=== PATIENT | female | born 1965 | race Caucasian/White ===

== ENCOUNTER 2016-07-01 14:52 | Observation (INO) | payer OTHER ==
[~2016-07-01] VITALS: Ht 165.1 cm; Wt 83.1 kg
[~2016-07-01 14:52] MED LIST: CORTISONE IM; LEVO-242 PO; NEXI20CA PO; PERC5TAB12 PO; SYNT25TA PO; TRAZ100T4 PO; VENL75TA PO
[2016-07-02] MEDS ORDERED: METOPROLOL TARTRATE 25 MG TAB PO PRN (06:45)
[2016-07-02] MEDS ORDERED: SODIUM CHLORID 0.9% 500 ML IV SCH (06:45)
[2016-07-02] MEDS ORDERED: ceFAZolin 2 GM PREMIX 50 ML IV SCH (06:45)
[2016-07-02] MEDS ORDERED: LACTATED RINGER'S 1000 ML IV SCH (06:45)
[2016-07-02] MEDS ORDERED: INSULIN HUMAN REGULAR 1,000 UNITS/10 ML VIAL SQ PRN (06:45)
[2016-07-02 06:52] VITALS: BP 138/91; PULSE 89; RESP 18; TEMP 98.5; O2SAT 99
--- NOTE | 2016-07-02 06:59 | RADRPT ---
EXAM DATE/TIME: 07/02/2016 06:36 [facility] COMPARISON: No previous studies available for comparison. INDICATIONS : Shortness of breath, pre-op Lap hernia repair. MEDICAL HISTORY : None. SURGICAL HISTORY : None. ENCOUNTER: Initial ACUITY: 1 day PAIN SCORE: 0/10 LOCATION: Bilateral chest FINDINGS: A single view of the chest demonstrates the lungs to be symmetrically aerated without evidence of mas s, infiltrate or effusion. The cardiomediastinal contours are unremarkable. Osseous structures are intact. CONCLUSION: No acute disease. Mendez Suarez MD on July 02, 2016 at 6:57 Board Certified Radiologist. This report was verified electronically.
[2016-07-02] MEDS ORDERED: BUPIVACAINE/EPINEPHRINE 0.25% PF 30 ML VIAL ONE ×2 (07:01→09:08)
[2016-07-02 07:24] LABS: AUTOMATED NEUTROPHIL # 7.4 TH/MM3 (1.8-7.7); BASOPHIL # 0.1 TH/MM3 (0-0.2); BASOPHIL % 0.8 % (0.0-2.0); EOSINOPHIL # 0.2 TH/MM3 (0-0.4); EOSINOPHIL % 1.7 % (0.0-4.0); HEMATOCRIT 35.7 % (35.0-46.0); HEMO FLAGS DIFF FINAL; LYMPH % 17.9 % (9.0-44.0); LYMPHOCYTE # 1.9 TH/MM3 (1.0-4.8); MEAN CELL VOLUME 89.8 FL (80.0-100.0); MEAN CORPUSCULAR HGB CONC 33.4 % (32.0-36.0); NEUT % 71.6 % (16.0-70.0); PLATELET COUNT 397 TH/MM3 (150-450); RED BLOOD COUNT 3.97 MIL/MM3 (4.00-5.30); RED CELL DISTRIBUTION WIDTH 13.5 % (11.6-17.2); WHITE BLOOD COUNT 10.4 TH/MM3 (4.0-11.0)
[2016-07-02] MEDS ORDERED: ACETAMINOPHEN 1000 MG/100 ML VIAL IV ONE ×2 (07:37→07:40)
[2016-07-02] MEDS ORDERED: FAMOTIDINE 20 MG/2 ML VIAL ONE (07:41)
[2016-07-02] MEDS ORDERED: DEXAMETHASONE SOD PHOS 4 MG/ML VIAL ONE (07:50)
[2016-07-02] MEDS ORDERED: MIDAZOLAM HCL 2 MG/2 ML VIAL ONE (07:50)
[2016-07-02] MEDS ORDERED: fentaNYL CITRATE 250 MCG/5 ML AMP ONE (09:40)
[2016-07-02] MEDS ORDERED: *morphine SULFATE 8 MG/ML PERIprocedure ONLY ONE (10:04)
[2016-07-02] MEDS ORDERED: SODIUM CHLOR 0.9% 1000 ML INJ 1,000 ML IV SCH (10:07)
[2016-07-02] MEDS ORDERED: Post-op Orders (for Pharmacy) MISC XX ONE (10:15)
[2016-07-02] MEDS ORDERED: HYDROmorphone HCL PF 1 MG/ML VIAL IV PRN (10:15)
[2016-07-02] MEDS ORDERED: ONDANSETRON HCL 4 MG/2 ML VIAL IV PRN (10:15)
[2016-07-02] MEDS ORDERED: NALOXONE HCL 0.4 MG/ML AMP IV PRN (10:15)
[2016-07-02] MEDS ORDERED: diphenhydrAMINE HCL 50 MG/ML VIAL IV PRN (10:15)
[2016-07-02] MEDS ORDERED: MORPHINE SULFATE 4 MG/ML INJ IV PUSH PRN (10:15)
[2016-07-02] MEDS ORDERED: SODIUM CHLORIDE 0.9% FLUSH 5 ML FLUSH IVF PRN (10:15)
[2016-07-02] MEDS ORDERED: KETOROLAC TROMETHAMINE 30 MG/ML (IVP) VIAL IVP PRN (10:15)
[2016-07-02] MEDS ORDERED: SODIUM CHLORIDE 0.9% FLUSH 5 ML FLUSH IVF SCH (10:15)
[2016-07-02] MEDS ORDERED: ACETAMINOPHEN 325MG/HYDROcodone 7.5MG/15ML UDC PO PRN (10:15)
[2016-07-02] MEDS ORDERED: DO NOT ADM ANY ANTICOAGULANT DRUGS XX PRN (10:30)
[2016-07-02] MEDS ORDERED: PHENYLEPH/NS 1000 MCG/10 ML SYR IV ONE (12:00)
[2016-07-02] MEDS ORDERED: KETOROLAC TROMETHAMINE 60 MG/2 ML (IM) VIAL IM ONE (12:00)
[2016-07-02] MEDS ORDERED: PROPOFOL 200 MG/20 ML AMP IV ONE (12:00)
[2016-07-02] MEDS ORDERED: LACTATED RINGER'S 1000 ML INJ 1,000 ML IV ONE (12:00)
[2016-07-02] MEDS ORDERED: NEOSTIGMINE 3 MG/3 ML SYR IV ONE (12:00)
[2016-07-02] MEDS ORDERED: ONDANSETRON HCL 4 MG/2 ML VIAL IV PUSH ONE (12:00)
[2016-07-02 12:31] VITALS: BP 121/81; PULSE 90; RESP 18; TEMP 98.4; O2SAT 99
--- NOTE | 2016-07-07 17:39 | MP ---
cc: PARDEEP GUTIÉRREZ M.D. DATE OF SURGERY: 07/02/2016 PREOPERATIVE DIAGNOSIS Severe reflux with small hiatal hernia. POSTOPERATIVE DIAGNOSIS Severe reflux with small hiatal hernia. PROCEDURE PERFORMED Laparoscopic Geoff fundoplication with primary repair of hiatal hernia. SURGEON Pardeep Gutiérrez MD [employer]ESSING SUPERVISOR Michel Villaseñor MD ANESTHESIA General endotracheal. COMPLICATIONS None. INDICATION FOR PROCEDURE Ms. Morales is a very pleasant 50-year-old female who has had a longstanding severe reflux disease. She was seen by Dr. Whitt. She underwent Santamaria Chip which showed severe reflux. The patient was also having a.m. regurgitation. Upper GI confirmed a small hiatal hernia with significant reflux. She was referred for surgical evaluation. Risks and benefits of a Geoff fundoplication with reduction of a hiatal hernia was discussed with her and she was agreeable. DETAILS OF PROCEDURE The patient was identified, brought to the operating room and placed supine on the operating table. After adequate general endotracheal anesthesia was achieved, the abdomen was prepped and draped in standard surgical fashion. Supraumbilical space was anesthetized with 0.25% Marcaine. Supraumbilical incision was made. Dissection was carried down subcutaneous tissue to midline fascia. Midline fascia was incised sharply. A finger was then placed in the peritoneal cavity without difficulty. Blunt balloon trocar was inserted and the abdomen was insufflated to 15 mmHg using CO2 gas. Next, four 5 mm trocars were placed across the upper abdomen after anesthetizing the skin and subcutaneous tissue with 0.25% Marcaine. All trocars were placed under direct vision. Attention was directed to the upper abdomen. The Cecelia flex liver retractor was used to elevate the left lobe of the liver up out of the operative field. It is held in place with the robot arm. Next, attention was directed to the stomach and esophageal hiatus. The left delilah was immediately identified and the gastrohepatic ligaments were taken down and were to clearly see the stomach and the esophagus. Once it was completely freed up on the medial side attention was directed the lateral side. The short gastric vessels were taken down along the greater curve of the stomach all the way up to the left esophageal delilah. Delilah was clearly identified. Once both sides were taken down a posterior window was made behind the esophagus. Care was taken to identify and preserve the posterior vagus nerve. A large opening was made and the fundus of stomach was easily visualized and grabbed and brought around behind the esophagus with no tension whatsoever. Once we did this we then serially placed bougies up to a level of 46. Once the [address] a loose wrap was performed using gastric esophageal and gastric bites with three consecutive sutures. The wrap was quite loose and under no tension whatsoever. Once we accomplished this the wrap was photographed. This was accomplished using a 0-Ethibond suture. Attention was now directed to reapproximation of the posterior diaphragmatic delilah in order to repair the hiatal hernia. A single Ethibond suture was placed through the two delilah and they were brought together under no significant tension. This was also photographed. With this the repair was completed. The bougie was then removed. 0.25% Marcaine was injected in the operative field. All trocars were removed under direct vision and the midline fascia was repaired with 0 Vicryl in [id number] fashion. Skin was closed with 4-0 Vicryl. The patient tolerated the procedure well, was awakened and brought to recovery in stable condition. MD LARRY Gonzales/ITALO /10:14 AM /5:25 PM
== END 2016-07-02 12:52 | disposition home or self-care (01) ==
LOC: INTOOBSV 07-02 06:13 → HSDI 07-02 06:13
PROVIDERS: ADMIT Surgery Trauma Surgery; ATTEND Surgery Trauma Surgery
DX: K21.9 Gastro-esophageal reflux disease without esophagitis (principal); K44.9 Diaphragmatic hernia without obstruction or gangrene
CPT/HCPCS: 00790; 43280; 71010; 85025; G0378; J0131; J0690; J1100; J1885; J2250; J2270; J2370; J2405; J2710; J3010; J7030; J7120

== ENCOUNTER 2017-05-03 10:46 | Observation (INO) | payer OTHER ==
[~2017-05-03] VITALS: Ht 165.1 cm; Wt 77.0 kg
[~2017-05-03 10:46] MED LIST changes: -PERC5TAB12 PO
[2017-05-03 10:48] VITALS: BP 184/96; PULSE 90; RESP 20; TEMP 98.3; O2SAT 98
[2017-05-03 10:54] VITALS: BP 186/95; PULSE 85; RESP 16; TEMP 99.1; O2SAT 100
[2017-05-03 10:58] VITALS: BP 186/95; PULSE 85; RESP 16; O2SAT 100
[2017-05-03] MEDS ORDERED: TRAZ100T10 PO (11:12)
[2017-05-03] MEDS ORDERED: ASPIRIN 81 MG CHEW TAB PO ONE (11:15)
[2017-05-03] MEDS ORDERED: SODIUM CHLORIDE 0.9% FLUSH 10 ML FLUSH IVF PRN (11:15)
[2017-05-03] MEDS ORDERED: MORPHINE SULFATE 4 MG/ML INJ IV PUSH ONE (11:15)
[2017-05-03 11:20] VITALS: BP 130/83; PULSE 83; RESP 16; O2SAT 97
[2017-05-03 11:30] LABS: AUTOMATED NEUTROPHIL # 5.5 TH/MM3 (1.8-7.7); BASOPHIL # 0.1 TH/MM3 (0-0.2); BASOPHIL % 0.7 % (0.0-2.0); EOSINOPHIL # 0.1 TH/MM3 (0-0.4); EOSINOPHIL % 1.1 % (0.0-4.0); HEMATOCRIT 38.3 % (35.0-46.0); HEMO FLAGS DIFF FINAL; LYMPH % 23.9 % (9.0-44.0); MEAN CELL VOLUME 89.9 FL (80.0-100.0); MEAN CORPUSCULAR HEMOGLOBIN 29.6 PG (27.0-34.0); MEAN CORPUSCULAR HGB CONC 32.9 % (32.0-36.0); MONO % 7.4 % (0.0-8.0); NEUT % 66.9 % (16.0-70.0); PLATELET COUNT 357 TH/MM3 (150-450); RED BLOOD COUNT 4.26 MIL/MM3 (4.00-5.30); RED CELL DISTRIBUTION WIDTH 17.7 % (11.6-17.2); WHITE BLOOD COUNT 8.2 TH/MM3 (4.0-11.0)
[2017-05-03 11:46] LABS: ANION GAP 7 MEQ/L (5-15); AST (GOT) 17 U/L (15-37); BICARBONATE 24.7 MEQ/L (21.0-32.0); BLOOD UREA NITROGEN 12 MG/DL (7-18); CHLORIDE 103 MEQ/L (98-107); GLOMERULAR FILTRATION RATE 81 ML/MIN (>89); POTASSIUM 3.9 MEQ/L (3.5-5.1); SODIUM (NA) 135 MEQ/L (136-145)
[2017-05-03 11:50] LABS: APTT (PATIENT) 31.1 SEC (24.3-30.1); INTERNATIONAL NORMALIZED RATIO 0.9 RATIO
[2017-05-03 11:52] LABS: ALKALINE PHOSPHATASE 58 U/L (45-117); ALT (GPT) 13 U/L (10-53); TOTAL BILIRUBIN ADULT 0.3 MG/DL (0.2-1.0)
[2017-05-03 11:54] LABS: CREATINE KINASE 72 U/L (26-192)
--- NOTE | 2017-05-03 12:02 | RADRPT ---
EXAM DATE/TIME: 05/03/2017 11:30 [facility] COMPARISON: CHEST SINGLE AP, July 02, 2016, 6:36. INDICATIONS : Mid-sternal chest pains with pressure, radiating into left shoulder. MEDICAL HISTORY : None. SURGICAL HISTORY : None. ENCOUNTER: Initial ACUITY: 1 day PAIN SCORE: 9/10 LOCATION: Left chest FINDINGS: A single view of the chest demonstrates the lungs to be symmetrically aerated without evidence of mas s, infiltrate or effusion. The cardiomediastinal contours are unremarkable. Osseous structures are intact. CONCLUSION: 1. No acute cardiopulmonary disease. Raza Montiel MD on May 03, 2017 at 12:00 Board Certified Radiologist. This report was verified electronically.
[2017-05-03] MEDS ORDERED: IOHEXOL 350 MG/ML 10 ML VIAL (for RAD DIAG) IVCONTRAST ONE (12:46)
--- NOTE | 2017-05-03 12:51 | RADRPT ---
EXAM DATE/TIME: 05/03/2017 12:38 [facility] COMPARISON: No previous studies available for comparison. INDICATIONS : Chest pain. IV CONTRAST: 75 cc Omnipaque 350 (iohexol) IV RADIATION DOSE: 8.65 CTDIvol (mGy) MEDICAL HISTORY : Hernia, hiatal. SURGICAL HISTORY : Appendectomy. ENCOUNTER: Initial ACUITY: 1 day PAIN SCALE: 4/10 LOCATION: Bilateral chest TECHNIQUE: Volumetric scanning of the chest was performed using a pulmonary embolism protocol MIP images were re constructed. Using automated exposure control and adjustment of the mA and/or kV according to patien t size, radiation dose was kept as low as reasonably achievable to obtain optimal diagnostic quality images. DICOM format image data is available electronically for review and comparison. Follow-up recommendations for detected pulmonary nodules are based at a minimum on nodule size and pa tient risk factors according to Fleischner Society Guidelines. FINDINGS: PULMONARY ARTERIES: No filling defects are seen in the pulmonary arteries through the segmental level. LUNGS: There is no consolidation or pneumothorax . No concerning pulmonary nodule is visualized. PLEURAE: There is no pleural thickening or pleural effusion. MEDIASTINUM: There is good visualization of the great vessels of the middle mediastinum. No evidence of mediastin al or hilar adenopathy/mass. Mild cardiomegaly. MUSCULOSKELETAL: Within normal limits for patient age. MISCELLANEOUS: The visualized upper abdominal organs demonstrate no acute abnormality. CONCLUSION: 1. No evidence of pulmonary embolism. 2. Mild cardiomegaly. 3. No focal infiltrate or vascular congestion. Farhan Epstein MD on May 03, 2017 at 12:47 Board Certified Radiologist. This report was verified electronically.
--- NOTE | 2017-05-03 13:02 | PD ---
HPI Chief Complaint: Chest Pain Time Seen by Provider: 10:56 Travel History International Travel<30 days: No Contact w/Intl Traveler<30days: No Traveled to known affect area: No History of Present Illness HPI Patient is a 51-year-old female comes in complaining of chest pain. She says that the pain woke her up from sleep last night and felt like a crushing pressure in the center of her chest. She says that eventually it lined up, but is never gone away. She does have some associated shortness of breath with this. She denies nausea or vomiting. She denies any fever or chills. She denies cough or cold. She is still taking control dose she has been in menopause for 2 years. She denies leg swelling or calf pain. PFSH Past Medical History Anxiety: Yes Depression: No Cancer: No Cardiovascular Problems: No Cerebrovascular Accident: No Diabetes: No Diminished Hearing: No Endocrine: Yes Gastrointestinal Disorders: Yes (hiatal hernia, ACID REFLUX) GERD: Yes Genitourinary: No Headaches: Yes Hepatitis: No Hiatal Hernia: Yes Immune Disorder: No Insomnia: Yes Musculoskeletal: Yes (arthritis, buldging disc, sciatic nerve) Neurologic: No Psychiatric: Yes (ANXIETY) Reproductive: No Respiratory: No Immunizations Current: Yes Migraines: No Seizures: No Shingles: Yes Thyroid Disease: Yes (HYPOTHYROID) Ulcer: No Influenza Vaccination: No ?: Not Menopausal: Yes : 0 Past Surgical History Abdominal Surgery: Yes (appendectomy / HIATAL HERNIA SURGERY) AICD: No Cardiac Surgery: No Ear Surgery: No Endocrine Surgery: No Eye Surgery: Yes (RT. CATARACT SX. 11 YEARS AGO) Genitourinary Surgery: No Gynecologic Surgery: No Joint Replacement: No Oral Surgery: No Pacemaker: No Thoracic Surgery: No Other Surgery: Yes Social History Alcohol Use: Yes (2 GLASSES WINE/DAY) Tobacco Use: No Substance Use: No Allergies-Medications (Allergen,Severity, Reaction): Coded Allergies: codeine (Unverified Allergy, Severe, NAUSEA, 05/03/17) Reported Meds & Prescriptions Reported Meds & Active Scripts Active Reported Trazodone (Trazodone HCl) 100 Mg Tablet 100 Mg PO HS [cortisone injection] Unknown Dose IM [id number] Synthroid (Levothyroxine Sodium) 25 Mcg Tab 25 Mcg PO DAILY Lutera (Levonorgestrel-Ethinyl Estradiol) 0.1-20 mg-mcg Tab 1 Tab PO DAILY Effexor (Venlafaxine HCl) 75 Mg Tab 75 Mg PO DAILY Review of Systems Except as stated in HPI: all other systems reviewed are Neg General / Constitutional: No: Fever, Chills HENT: No: Headaches, Lightheadedness Cardiovascular: Positive: Chest Pain or Discomfort Respiratory: Positive: Shortness of Breath, No: Cough Gastrointestinal: No: Nausea, Vomiting, Abdominal Pain Genitourinary: No: Dysuria Musculoskeletal: No: Weakness, Edema Skin: No Rash, No Change in Pigmentation Neurologic: No: Weakness, Dizziness Physical Exam Narrative GENERAL: Awake and alert, in no acute distress. SKIN: Focused skin assessment warm/dry. HEAD: Atraumatic. Normocephalic. EYES: Pupils equal and round. No scleral icterus. ENT: Mucous membranes pink and moist. NECK: Trachea midline. No JVD. CARDIOVASCULAR: Regular rate and rhythm. No murmur appreciated. RESPIRATORY: No accessory muscle use. Clear to auscultation. Breath sounds equal bilaterally. GASTROINTESTINAL: Abdomen soft, non-tender, nondistended. MUSCULOSKELETAL: No obvious deformities. No clubbing. No cyanosis. No edema. NEUROLOGICAL: Awake and alert. No obvious cranial nerve deficits. Motor grossly within normal limits. Normal speech. PSYCHIATRIC: Appropriate mood and affect; insight and judgment normal. Data Data Last Documented VS Vital Signs Date Time Temp Pulse Resp B/P (MAP) Pulse Ox O2 Delivery O2 Flow Rate FiO2 05/03/17 11:20 83 16 130/83 (99) 97 Room Air 05/03/17 10:54 99.1 Orders Orders Ckmb (Isoenzyme) Profile (05/03/17 11:06) Complete Blood Count With Diff (05/03/17 11:06) Comprehensive Metabolic Panel (05/03/17 11:06) D-Dimer (05/03/17 11:06) Prothrombin Time / Inr (Pt) (05/03/17 11:06) Act Partial Throm Time (Ptt) (05/03/17 11:06) Troponin I (05/03/17 11:06) Chest, Single Ap (05/03/17 11:06) Ecg Monitoring (05/03/17 11:06) Bilateral Bp Monitoring (05/03/17 11:06) Iv Access Insert/Monitor (05/03/17 11:06) Oximetry (05/03/17 11:06) Oxygen Administration (05/03/17 11:06) Aspirin Chew (Aspirin Chew) (05/03/17 11:15) Morphine Inj (Morphine Inj) (05/03/17 11:15) Sodium Chloride 0.9% Flush (Ns Flush) (05/03/17 11:15) Electrocardiogram (05/03/17 10:58) Ct Pulmonary Angiogram (05/03/17 12:04) Iohexol 350 Inj (Omnipaque 350 Inj) (05/03/17 12:46) Labs Laboratory Tests Test 05/03/17 11:15 White Blood Count 8.2 TH/MM3 Red Blood Count 4.26 MIL/MM3 Hemoglobin 12.6 GM/DL Hematocrit 38.3 % Mean Corpuscular Volume 89.9 FL Mean Corpuscular Hemoglobin 29.6 PG Mean Corpuscular Hemoglobin Concent 32.9 % Red Cell Distribution Width 17.7 % Platelet Count 357 TH/MM3 Mean Platelet Volume 7.1 FL Neutrophils (%) (Auto) 66.9 % Lymphocytes (%) (Auto) 23.9 % Monocytes (%) (Auto) 7.4 % Eosinophils (%) (Auto) 1.1 % Basophils (%) (Auto) 0.7 % Neutrophils # (Auto) 5.5 TH/MM3 Lymphocytes # (Auto) 2.0 TH/MM3 Monocytes # (Auto) 0.6 TH/MM3 Eosinophils # (Auto) 0.1 TH/MM3 Basophils # (Auto) 0.1 TH/MM3 CBC Comment DIFF FINAL Differential Comment Prothrombin Time 10.0 SEC Prothromb Time International Ratio 0.9 RATIO Activated Partial Thromboplast Time 31.1 SEC D-Dimer Quantitative (PE/DVT) 0.56 MG/L FEU Blood Urea Nitrogen 12 MG/DL Creatinine 0.75 MG/DL Random Glucose 90 MG/DL Total Protein 7.8 GM/DL Albumin 3.5 GM/DL Calcium Level 8.4 MG/DL Alkaline Phosphatase 58 U/L Aspartate Amino Transf (AST/SGOT) 17 U/L Alanine Aminotransferase (ALT/SGPT) 13 U/L Total Bilirubin 0.3 MG/DL Sodium Level 135 MEQ/L Potassium Level 3.9 MEQ/L Chloride Level 103 MEQ/L Carbon Dioxide Level 24.7 MEQ/L Anion Gap 7 MEQ/L Estimat Glomerular Filtration Rate 81 ML/MIN Total Creatine Kinase 72 U/L Troponin I LESS THAN 0.02 NG/ML MDM Medical Decision Making Medical Screen Exam Complete: Yes Emergency Medical Condition: Yes Medical Record Reviewed: Yes Interpretation(s) ECG shows normal sinus rhythm at 80, no ST elevation or depression, normal intervals Differential Diagnosis ACS versus NSTEMI versus STEMI versus PE Narrative Course Patient is a 51-year-old female who comes in complaining of chest pain. Exam shows no acute abnormalities. IV established, labs sent. Patient connected to the computer programming manager. Labs show troponin to be negative, however d-dimer is positive. CTA of the chest shows no evidence of PE. Patient given aspirin and morphine. She reports feeling better. She'll be placed in the chest pain center for rule out ACS. Last [address] Angiography 05/03/17 1204 Signed Impressions: Service Date/Time: Wednesday, May 03, 2017 12:38 - CONCLUSION: 1. No evidence of pulmonary embolism. 2. Mild cardiomegaly. 3. No focal infiltrate or vascular congestion. Farhan Epstein MD Chest X-Ray 05/03/17 1106 Signed Impressions: Service Date/Time: Wednesday, May 03, 2017 11:30 - CONCLUSION: 1. No acute cardiopulmonary disease. Raza Montiel MD Diagnosis Primary Impression: Chest pain Qualified Codes: R07.9 - Chest pain, unspecified Admitting Information Admitting Physician Requests: Sherry Herrera MD May 03, 2017 13:02
[2017-05-03 13:12] VITALS: BP 133/81; PULSE 78; RESP 16; O2SAT 98
[2017-05-03] MEDS ORDERED: ACETAMINOPHEN 500 MG CPLT PO PRN (13:45)
[2017-05-03] MEDS ORDERED: NITROGLYCERIN 0.4 MG SL 25 TABS/BTL SL PRN (13:45)
[2017-05-03] MEDS ORDERED: ONDANSETRON HCL 4 MG/2 ML VIAL IV PUSH PRN (13:45)
--- NOTE | 2017-05-03 14:06 | HHI.HP ---
HPI Primary Care Physician Kate Armstrong MD Chief Complaint Chest pain History of Present Illness 51-year-old female with history of hypothyroidism presents to emergency room for further evaluation of chest pain. Onset 2 AM, woke her up from sleep. Substernal chest pressure. Had to stand up to catch her breath. Duration 1 minute. Associated symptoms of dyspnea. Denied nausea, vomiting, or diaphoresis. No known precipitating or relieving factors. Denies similar pain in the past. 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 Came to emergency room for further evaluation. Review of Systems General: No fatigue,weakness, fever, chills, or recent illness change in appetite. Has been her general state of health. HEENT: No PALMER CV: As stated above. No current chest pain or pressure. No palpitations. RESP: No SOB, cough, or recent URI or sputum productions. GI: No nausea, vomiting, or bowel changes. No unintentional weight gain or weight loss : No dysuria EXT: No lower leg edema MS: Chronic right hip discomfort, cortisone shots regularly. Ambulates with a limp due to hip pain. NEURO: Dizziness has resolved. No difficulty with balance, LOC, motor/sensory deficits PSYCH: History of anxiety. Denies past panic attacks. Endorses current situational stress regarding chronic right hip pain and limitation. States she is extremely concerned regarding her hip as she works as a deputy program manager and fearful hip is affecting her job. SKIN: No rashes, no concerning lesions Past Family Social History Allergies: Coded Allergies: codeine (Unverified Allergy, Severe, NAUSEA, 05/03/17) Past Medical History Hypothyroidism, anxiety, GERD, arthritis, sciatic nerve, chronic right hip pain Past Surgical History Hiatal hernia repair, right cataract surgery, appendectomy Reported Medications Reported Meds & Active Scripts Active Reported Trazodone (Trazodone HCl) 100 Mg Tablet 100 Mg PO HS [cortisone injection] Unknown Dose IM [id number] Synthroid (Levothyroxine Sodium) 25 Mcg Tab 25 Mcg PO DAILY Lutera (Levonorgestrel-Ethinyl Estradiol) 0.1-20 mg-mcg Tab 1 Tab PO DAILY Effexor (Venlafaxine HCl) 75 Mg Tab 75 Mg PO DAILY Active Ordered Medications Current Medications Medications (Trade) Dose Ordered Sig/Shawn Route Start Time Stop Time Status Last Admin (NS Flush) 2 ml UNSCH PRN IVF 05/03/17 11:15 (NS Flush) 2 ml BID IV FLUSH 05/03/17 21:00 (Tylenol) 500 mg Q4H PRN PO 05/03/17 13:45 (Zofran Inj) 4 mg Q6H PRN IV PUSH 05/03/17 13:45 (Nitrostat Sl) 0.4 mg Q5M PRN SL 05/03/17 13:45 (Aspirin) 325 mg DAILY PO 05/04/17 09:00 Family History Noncontributory for early onset cardiovascular disease. Social History No known hypertension, diabetes, or hyperlipidemia. Lifelong nonsmoker. Denies any alcohol. Despite right hip pain endorses active lifestyle [place]. Past cardiac testing None Physical Exam Vital Signs Vital Signs Date Time Temp Pulse Resp B/P (MAP) Pulse Ox O2 Delivery O2 Flow Rate FiO2 05/03/17 14:00 05/03/17 13:12 78 16 133/81 (98) 98 Room Air 05/03/17 11:20 83 16 130/83 (99) 97 Room Air 05/03/17 10:58 85 16 186/95 (125) 100 Room Air 05/03/17 10:54 99.1 85 16 186/95 (125) 100 05/03/17 10:48 98.3 90 20 184/96 (125) 98 Physical Exam GENERAL: Alert WN, WD, NAD, pleasant, female who appears anxious HEAD: NC, AT EYES: Sclera clear, conjunctiva without injection, pupils equal and round ENT: Mucous membranes pink and moist CV: RRR, without murmur, rub, gallop, no JVD, S1-S2 no S3-S4. Chest wall discomfort is not reproducible palpation. RESP: Clear lungs throughout bilateral, no crackles, wheeze, rhonchi, symmetrical chest rise, nonlabored, able to speak in full sentences ABD: Soft, NT, ND, no masses, positive bowel tones EXT: Pulses +24, no dependent edema MS: Normal tone 4 extremities, no obvious deformities, full range of motion NEURO: CN II through CN XII grossly intact, motor strength 5/5 PSYCH: A+O 3, pleasant affect, appropriate speech, mood, insight and judgment who appears anxious. SKIN: Normal turgor, normal texture, no lesions, no rashes, brisk cap refill, even hair distribution Laboratory Laboratory Tests Test 05/03/17 11:15 White Blood Count 8.2 Red Blood Count 4.26 Hemoglobin 12.6 Hematocrit 38.3 Mean Corpuscular Volume 89.9 Mean Corpuscular Hemoglobin 29.6 Mean Corpuscular Hemoglobin Concent 32.9 Red Cell Distribution Width 17.7 Platelet Count 357 Mean Platelet Volume 7.1 Neutrophils (%) (Auto) 66.9 Lymphocytes (%) (Auto) 23.9 Monocytes (%) (Auto) 7.4 Eosinophils (%) (Auto) 1.1 Basophils (%) (Auto) 0.7 Neutrophils # (Auto) 5.5 Lymphocytes # (Auto) 2.0 Monocytes # (Auto) 0.6 Eosinophils # (Auto) 0.1 Basophils # (Auto) 0.1 CBC Comment DIFF FINAL Differential Comment Prothrombin Time 10.0 Prothromb Time International Ratio 0.9 Activated Partial Thromboplast Time 31.1 D-Dimer Quantitative (PE/DVT) 0.56 Blood Urea Nitrogen 12 Creatinine 0.75 Random Glucose 90 Total Protein 7.8 Albumin 3.5 Calcium Level 8.4 Alkaline Phosphatase 58 Aspartate Amino Transf (AST/SGOT) 17 Alanine Aminotransferase (ALT/SGPT) 13 Total Bilirubin 0.3 Sodium Level 135 Potassium Level 3.9 Chloride Level 103 Carbon Dioxide Level 24.7 Anion Gap 7 Estimat Glomerular Filtration Rate 81 Total Creatine Kinase 72 Troponin I LESS THAN 0.02 Result Diagram: 05/03/17 1115 05/03/[address] Angiography 05/03/17 1204 Signed Impressions: Service Date/Time: Wednesday, May 03, 2017 12:38 - CONCLUSION: 1. No evidence of pulmonary embolism. 2. Mild cardiomegaly. 3. No focal infiltrate or vascular congestion. Farhan Epstein MD Chest X-Ray 05/03/17 1106 Signed Impressions: Service Date/Time: Wednesday, May 03, 2017 11:30 - CONCLUSION: 1. No acute cardiopulmonary disease. Raza Montiel MD Course EKG Normal sinus rhythm, normal axis, no ST or T-segment changes, incomplete right bundle Caprini VTE Risk Assessment Caprini VTE Risk Assessment: No/Low Risk (score <= 1) Caprini Risk Assessment Model Point Value = 1 Point Value = 2 Point Value = 3 Point Value = 5 Age 41-60 Minor surgery BMI > 25 kg/m2 Swollen legs Varicose veins or History of unexplained or recurrent spontaneous Oral contraceptives or hormone replacement Sepsis (< 1 month) Serious lung disease, including pneumonia (< 1 month) Abnormal pulmonary function Acute myocardial infarction Congestive heart failure (< 1 month) History of inflammatory bowel disease Medical patient at bed rest Age 61-74 Arthroscopic surgery Major open surgery (> 45 min) Laparoscopic surgery (> 45 min) Malignancy Confined to bed (> 72 hours) Immobilizing plaster cast Central venous access Age >= 75 History of VTE Family history of VTE Factor V Leiden Prothrombin [id number] Lupus anticoagulant Anticardiolipin antibodies Elevated serum homocysteine Heparin-induced thrombocytopenia Other congenital or acquired thrombophilia Stroke (< 1 month) Elective arthroplasty Hip, pelvis, or leg fracture Acute spinal cord injury (< 1 month) Prophylaxis Regimen Total Risk Factor Score Risk Level Prophylaxis Regimen 0-1 Low Early ambulation 2 Moderate Order ONE of the following: *Sequential Compression Device (SCD) *Heparin 5000 units SQ BID 3-4 Higher Order ONE of the following medications: *Heparin 5000 units SQ TID *Enoxaparin/Lovenox 40 mg SQ daily (WT < 150 kg, CrCl > 30 mL/min) *Enoxaparin/Lovenox 30 mg SQ daily (WT < 150 kg, CrCl > 10-29 mL/min) *Enoxaparin/Lovenox 30 mg SQ BID (WT < 150 kg, CrCl > 30 mL/min) AND/OR *Sequential Compression Device (SCD) 5 or more Highest Order ONE of the following medications: *Heparin 5000 units SQ TID (Preferred with Epidurals) *Enoxaparin/Lovenox 40 mg SQ daily (WT < 150 kg, CrCl > 30 mL/min) *Enoxaparin/Lovenox 30 mg SQ daily (WT < 150 kg, CrCl > 10-29 mL/min) *Enoxaparin/Lovenox 30 mg SQ BID (WT < 150 kg, CrCl > 30 mL/min) AND *Sequential Compression Device (SCD) Assessment and Plan Assessment and Plan Atypical chest pain-admitted chest pain center. Seen and evaluated by Dr. Michel Lu. Ruled out with 2 sets of EKGs and cardiac enzymes. Reassurance provided. Proceed with exercise stress test. If unremarkable, plans to discharge later this afternoon with follow-up with PCP. Patient agreeable plan care. Anxiety-continue to Effexor, notify PCP of ER visit and follow-up within 2 weeks , encouraged her to discuss continued anxiety despite daily Effexor. Continue daily activity as able, eating a well-balanced diet, and getting plenty of rest. Eliana Stewart May 03, 2017 14:06
[2017-05-03 14:48] VITALS: BP 106/71; PULSE 79; RESP 20; TEMP 98; O2SAT 93
[2017-05-03 15:14] LABS: CREATINE KINASE 60 U/L (26-192)
--- NOTE | 2017-05-03 16:06 | EKG ---
Date Performed: 05/03/2017 Time Performed: 10:58:46 PTAGE: 51 years EKG: Sinus rhythm LOW QRS VOLTAGE IN PRECORDIAL LEADS INCOMPLETE RIGHT BUNDLE BRANCH BLOCK Compared to prior tracing n o significant change BORDERLINE ECG PREVIOUS TRACING : 05/21/2016 09.15 DOCTOR: Hardik Sagastume Interpretating Date/Time 05/03/2017 16:05:43
--- NOTE | 2017-05-03 16:15 | HHI.DCPOC ---
Discharge Care Plan Diagnosis: (1) Anxiety (2) Atypical chest pain Goals to Promote Your Health * To prevent worsening of your condition and complications * To maintain your health at the optimal level Directions to Meet Your Goals Take your medications as prescribed Follow your dietary instruction Follow activity as directed Keep your appointments as scheduled Take your immunizations and boosters as scheduled If your symptoms worsen call your PCP, if no PCP go to Urgent Care Center or Emergency Room Smoking is Dangerous to Your Health. Avoid second hand smoke Call the 24-hour hour crisis hotline for domestic abuse at Eliana Stewart May 03, 2017 16:15
[2017-05-03] MEDS ORDERED: SODIUM CHLORIDE 0.9% FLUSH 10 ML FLUSH IV FLUSH SCH (21:00)
--- NOTE | 2017-05-04 07:22 | TR ---
Date Performed: 05/03/2017 Time Performed: 15:20:00 DOCTOR: Dora Kohler DRUG LIST: CLINICAL HISTORY: REASON FOR TEST: Chest pain REASON FOR ENDING: OBSERVATION: CONCLUSION: [place] protocol completed. Stopped sec to exceeding target heart rate and leg fatigue . Maximum WC=272 Target HR Achieved=92.0% Maximum NX=215/90 Total Exercise Time=6:01. No reprod chest pain. No ectopy. No st t segment changes to sugg ischemia. Good execise tolerance. Recovery quick an d unremarkable. COMMENTS:
--- NOTE | 2017-05-04 07:28 | EKG ---
Date Performed: 05/03/2017 Time Performed: 14:55:43 PTAGE: 51 years EKG: Sinus rhythm LOW QRS VOLTAGE IN PRECORDIAL LEADS PATTERN CONSISTENT WITH PULMONARY DISEASE INCOMPLETE RIGHT BUNDL E BRANCH BLOCK MODERATE T-WAVE ABNORMALITY, CONSIDER ANTERIOR ISCHEMIA ABNORMAL ECG Since PREVIOUS TRACING , no significant change noted PREVIOUS TRACIN05/03/2017 10.58 DOCTOR: Dora Kohler Interpretating Date/Time 05/04/2017 07:28:02
[2017-05-04] MEDS ORDERED: ASPIRIN 325 MG TAB PO SCH (09:00)
== END 2017-05-03 18:31 | disposition home or self-care (01) ==
LOC: NEPC 10:46 → NEDA 13:06 → NEPFCDU 13:55
PROVIDERS: ADMIT Internal Medicine Cardiovascular Disease; ATTEND Internal Medicine Cardiovascular Disease
DX: R07.9 Chest pain, unspecified (principal); F41.9 Anxiety disorder, unspecified; R06.02 Shortness of breath; K21.9 Gastro-esophageal reflux disease without esophagitis; K44.9 Diaphragmatic hernia without obstruction or gangrene; R51 Headache; G47.00 Insomnia, unspecified; E03.9 Hypothyroidism, unspecified; Z79.899 Other long term (current) drug therapy; I51.7 Cardiomegaly; M25.551 Pain in right hip; G89.29 Other chronic pain; I45.10 Unspecified right bundle-branch block; R94.31 Abnormal electrocardiogram [ECG] [EKG]
CPT/HCPCS: 71010; 71275; 80053; 82550; 84484; 85025; 85379; 85610; 85730; 93005; 93017; 96374; 99285; G0378; J2270; Q9967